=== PATIENT | male | born 1985 | race Caucasian/White ===

== ENCOUNTER 2017-02-11 21:33 | Emergency (ER) | payer OTHER ==
[~2017-02-11] VITALS: Ht 175.3 cm; Wt 84.0 kg
[~2017-02-11 21:33] MED LIST: ADDE30TA PO; CEPH-460 PO; OXYC1CAP PO; XANA2TAB2 PO
[2017-02-11 21:35] VITALS: BP 153/89; PULSE 88; RESP 16; TEMP 98.3; O2SAT 99
[2017-02-11] MEDS ORDERED: CLINDAMYCIN PHOS 600 MG/4 ML VIAL IM ONE (23:15)
[2017-02-11] MEDS ORDERED: IBUPROFEN 800 MG TAB PO ONE (23:15)
[2017-02-11] MEDS ORDERED: CEPH-460 PO (23:25)
[2017-02-11] MEDS ORDERED: BACT800T5 PO (23:25)
[2017-02-11] MEDS ORDERED: IBUP800T23 PO (23:25)
--- NOTE | 2017-02-11 23:25 | PD ---
HPI Chief Complaint: Bite or Sting Time Seen by Provider: 23:06 Travel History International Travel<30 days: No Contact w/Intl Traveler<30days: No Traveled to known affect area: No History of Present Illness HPI 31-year-old male with history of bipolar disorder no significant medical history presents to emergency department for evaluation of light he believes maybe an insect bite to the heel right lower extremity. Patient states that he had an area that developed a pustule and he popped it. He's been keeping it covered but developed another area just distal to that. Reports pain at the site. No fever or chills. No other known exposures. Denies IV drug abuse. Has history of osteo-myelitis the right knee. He has no other symptoms to report. PFSH Past Medical History Hx Anticoagulant Therapy: Yes Arthritis: No Autoimmune Disease: No Bipolar Disorder: Yes Anxiety: Yes Depression: Yes Heart Rhythm Problems: No Cancer: No Cardiovascular Problems: Yes (ht murmur ) High Cholesterol: No Chemotherapy: No Chest Pain: No Congestive Heart Failure: No COPD: No Cerebrovascular Accident: No Diabetes: No Diminished Hearing: No Endocrine: No Gastrointestinal Disorders: No GERD: No Genitourinary: No Headaches: No Hiatal Hernia: No Hypertension: No Immune Disorder: No Implanted Vascular Access Dvce: No Kidney Stones: No Musculoskeletal: Yes (BLOOD CLOT IN RIGHT LEG) Neurologic: Yes (PTSD) Psychiatric: Yes Reproductive: No Respiratory: No Immunizations Current: Yes Radiation Therapy: No Renal Failure: No Seizures: No Sickle Cell Disease: No Sleep Apnea: No Thyroid Disease: No Ulcer: No Past Surgical History Abdominal Surgery: No AICD: No Arteriovenous Shunt: No Cardiac Surgery: No Ear Surgery: No Endocrine Surgery: No Eye Surgery: No Genitourinary Surgery: No Gynecologic Surgery: No Insulin Pump: No Joint Replacement: No Neurologic Surgery: No Oral Surgery: No Pacemaker: No Thoracic Surgery: No Other Surgery: Yes (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 Space doses at least 4 to 6 hours if more than once/day dosing. Review of Systems Except as stated in HPI: all other systems reviewed are Neg Physical Exam Narrative GENERAL: Well-nourished, well-developed patient, in no acute distress SKIN: Focused skin assessment warm/dry. HEAD: Normocephalic. 3 cm diameter scab lesion on the medial aspect of the right distal lower extremity. There is an area of induration just distal this with pustule formation. No fluctuation. EYES: No scleral icterus. No injection or drainage. NECK: Supple, trachea midline. No JVD or lymphadenopathy. CARDIOVASCULAR: Regular rate and rhythm without murmurs, gallops, or rubs. RESPIRATORY: Breath sounds equal bilaterally. No accessory muscle use. GASTROINTESTINAL: Abdomen soft, non-tender, nondistended. MUSCULOSKELETAL: No cyanosis, or edema. BACK: Nontender without obvious deformity. No CVA tenderness. Data Data Last Documented VS Vital Signs Date Time Temp Pulse Resp B/P (MAP) Pulse Ox O2 Delivery O2 Flow Rate FiO2 02/11/17 21:35 98.3 88 16 153/89 (110) 99 Room Air Orders Orders Wound Culture And Gram Stain (02/11/17 23:09) Clindamycin Inj (Cleocin Inj) (02/11/17 23:15) Ibuprofen (Motrin) (02/11/17 23:15) MDM Medical Decision Making Medical Screen Exam Complete: Yes Emergency Medical Condition: Yes Medical Record Reviewed: Yes Differential Diagnosis Abscess versus cellulitis versus folliculitis versus erysipelas Narrative Course 31-year-old male presents to emergency department for evaluation of a possible insect bite to the right distal lower extremity. Physical exam is consistent with an abscess. I&D is complete. Cultures obtained. Patient will be started on oral antibiotics and encouraged to follow-up with primary care provider. He agrees to return immediately with any acute worsening of symptoms. Procedures Procedure Narrative INCISION AND DRAINAGE OF ABSCESS: The area was prepped and was sterilely draped. Topical ethyl chloride was used to anesthetize the area. The area was properly anesthetized. A number 11 scalpel was used to make a 1-cm incision across the area of the abscess. Cultures were obtained. The abscess was drained an irrigated with normal saline. Sterile dressing is applied. Patient tolerated this well. Diagnosis Primary Impression: Abscess of right leg Referrals: Primary Care Physician Patient Instructions: Abscess Incision and Drainage (DC), General Instructions Additional Instructions: Warm compresses to the affected area Follow-up with a primary care provider Start Antibiotic in the morning and take it until it is all gone Return immediately to the emergency department with any acute worsening of symptoms. Med/Other Pt SpecificInfo: Prescription(s) given Scripts Ibuprofen (Ibuprofen) 800 Mg Tab 800 MG PO Q8H Y for Pain/Inflammation, #30 TAB 0 Refills Prov: Cele Butts 02/11/17 Cephalexin (Keflex) 500 Mg Cap 500 MG PO Q6H for Infection for 5 Days, CAP 0 Refills Prov: Cele Butts 02/11/17 Sulfamethoxazole-Trimethoprim (Bactrim DS) 800-160 Mg Tab 1 TAB PO BID for Infection, #20 TAB 0 Refills Prov: Cele Butts 02/11/17 Disposition: 01 DISCHARGE HOME Condition: Stable Cele Butts Feb 11, 2017 23:25
== END 2017-02-12 00:08 | disposition home or self-care (01) ==
LOC: NEPD 21:33
DX: L02.415 Cutaneous abscess of right lower limb (principal); B95.61 Methicillin susceptible Staphylococcus aureus infection as the cause of diseases classified elsewhere; F41.9 Anxiety disorder, unspecified; F17.200 Nicotine dependence, unspecified, uncomplicated; Z86.718 Personal history of other venous thrombosis and embolism; Z79.01 Long term (current) use of anticoagulants; F31.9 Bipolar disorder, unspecified
CPT/HCPCS: 10060; 86403; 87070; 87186; 87205; 96372

== ENCOUNTER 2017-06-23 06:25 | Emergency (ER) | payer OTHER ==
[~2017-06-23] VITALS: Ht 167.6 cm; Wt 75.0 kg
[~2017-06-23 06:25] MED LIST changes: +BACT800T5 PO; +IBUP1TAB7 PO; -OXYC1CAP PO
[2017-06-23 06:27] VITALS: BP 150/85; PULSE 58; RESP 16; TEMP 97.6; O2SAT 99
[2017-06-23 07:05] VITALS: BP 143/82; PULSE 52; RESP 16; TEMP 97.8; O2SAT 96
[2017-06-23 08:30] LABS: AUTOMATED NEUTROPHIL # 2.8 TH/MM3 (1.8-7.7); BASOPHIL % 0.6 % (0.0-2.0); EOSINOPHIL # 0.2 TH/MM3 (0-0.4); EOSINOPHIL % 2.2 % (0.0-4.0); HEMATOCRIT 43.3 % (39.0-51.0); HEMOGLOBIN 15.3 GM/DL (13.0-17.0); LYMPH % 48.6 % (9.0-44.0); LYMPHOCYTE # 3.3 TH/MM3 (1.0-4.8); MEAN CELL VOLUME 84.7 FL (80.0-100.0); MEAN CORPUSCULAR HEMOGLOBIN 29.9 PG (27.0-34.0); MEAN CORPUSCULAR HGB CONC 35.3 % (32.0-36.0); MEAN PLATELET VOLUME 9.5 FL (7.0-11.0); MONO % 8.4 % (0.0-8.0); MONOCYTE # 0.6 TH/MM3 (0-0.9); NEUT % 40.2 % (16.0-70.0); PLATELET COUNT 211 TH/MM3 (150-450); RED BLOOD COUNT 5.12 MIL/MM3 (4.50-5.90); RED CELL DISTRIBUTION WIDTH 13.2 % (11.6-17.2); WHITE BLOOD COUNT 6.9 TH/MM3 (4.0-11.0)
[2017-06-23 09:00] VITALS: BP 138/81; PULSE 50; RESP 16; TEMP 97.9; O2SAT 99
[2017-06-23 09:45] LABS: BLOOD UREA NITROGEN 13 MG/DL (7-18)
[2017-06-23 09:46] LABS: ALBUMIN 3.4 GM/DL (3.4-5.0); ALKALINE PHOSPHATASE 90 U/L (45-117); ALT (GPT) 31 U/L (12-78); AST (GOT) 20 U/L (15-37); C-REACTIVE PROTEIN 0.41 MG/DL (0.00-0.30); CALCIUM 8.8 MG/DL (8.5-10.1); CHLORIDE 105 MEQ/L (98-107); CREATININE 0.91 MG/DL (0.60-1.30); GLOMERULAR FILTRATION RATE 97 ML/MIN (>89); GLUCOSE,RANDOM 86 MG/DL (74-106); SODIUM (NA) 139 MEQ/L (136-145); TOTAL BILIRUBIN ADULT 0.2 MG/DL (0.2-1.0); TOTAL PROTEIN 7.4 GM/DL (6.4-8.2)
--- NOTE | 2017-06-23 09:59 | PD ---
HPI Chief Complaint: Chest Pain Time Seen by Provider: 07:15 Travel History International Travel<30 days: No Contact w/Intl Traveler<30days: No Traveled to known affect area: No History of Present Illness HPI This is a 31-year-old male who has a history of IV drug use who presents to the emergency department reporting that he wants to get checked for endocarditis. The patient reports that his girlfriend is upstairs dying in the ICU and the doctor there told him that he should get evaluated because they share needles. Patient says he had a fever several days ago. He denies any chest pain. He does have a history of osteomyelitis in his knee and he says it hurts from time to time but that is pretty chronic for him. He denies any acute symptoms but he was concerned and wanted to get some blood work done. PFSH Past Medical History Hx Anticoagulant Therapy: Yes Arthritis: No Autoimmune Disease: No Bipolar Disorder: Yes Anxiety: Yes Depression: Yes Heart Rhythm Problems: No Cancer: No Cardiovascular Problems: Yes (ht murmur ) High Cholesterol: No Chemotherapy: No Chest Pain: No Congestive Heart Failure: No COPD: No Cerebrovascular Accident: No Diabetes: No Diminished Hearing: No Endocrine: No Gastrointestinal Disorders: No GERD: No Genitourinary: No Headaches: No Hiatal Hernia: No Heparin Induced Thrombocytopen: No Hypertension: No Immune Disorder: No Implanted Vascular Access Dvce: No Kidney Stones: No Musculoskeletal: Yes (BLOOD CLOT IN RIGHT LEG) Neurologic: Yes (PTSD) Psychiatric: Yes Reproductive: No Respiratory: No Immunizations Current: Yes Radiation Therapy: No Renal Failure: No Seizures: No Sickle Cell Disease: No Sleep Apnea: No Thyroid Disease: No Ulcer: No Tetanus Vaccination: < 5 Years Influenza Vaccination: No Past Surgical History Abdominal Surgery: No AICD: No Arteriovenous Shunt: No Cardiac Surgery: No Ear Surgery: No Endocrine Surgery: No Eye Surgery: No Genitourinary Surgery: No Gynecologic Surgery: No Insulin Pump: No Joint Replacement: No Neurologic Surgery: No Oral Surgery: No Pacemaker: No Thoracic Surgery: No Other Surgery: Yes (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 HEAD: Atraumatic. Normocephalic. EYES: Pupils equal and round. No injection or drainage. ENT: Moist mucous membranes NECK: Trachea midline. CARDIOVASCULAR: Regular rate and rhythm. No murmur appreciated. RESPIRATORY: Clear to auscultation. Breath sounds equal bilaterally. GASTROINTESTINAL: Abdomen soft, non-tender, nondistended. MUSCULOSKELETAL: No obvious deformities. Right knee has some scarring but is not warm or swollen. NEUROLOGICAL: Awake and alert. No obvious cranial nerve deficits. PSYCHIATRIC: Appropriate mood and affect; insight and judgment normal. Data Data Last Documented VS Vital Signs Date Time Temp Pulse Resp B/P (MAP) Pulse Ox O2 Delivery O2 Flow Rate FiO2 06/23/17 09:00 97.9 50 16 138/81 (100) 99 Room Air Orders Orders Electrocardiogram (06/23/17 ) Complete Blood Count With Diff (06/23/17 07:28) Comprehensive Metabolic Panel (06/23/17 07:28) Westergren Sedimentation Rate (06/23/17 07:28) C-Reactive Protein (Crp) (06/23/17 07:28) Labs Laboratory Tests Test 06/23/17 07:25 06/23/17 08:32 White Blood Count 6.9 TH/MM3 Red Blood Count 5.12 MIL/MM3 Hemoglobin 15.3 GM/DL Hematocrit 43.3 % Mean Corpuscular Volume 84.7 FL Mean Corpuscular Hemoglobin 29.9 PG Mean Corpuscular Hemoglobin Concent 35.3 % Red Cell Distribution Width 13.2 % Platelet Count 211 TH/MM3 Mean Platelet Volume 9.5 FL Neutrophils (%) (Auto) 40.2 % Lymphocytes (%) (Auto) 48.6 % Monocytes (%) (Auto) 8.4 % Eosinophils (%) (Auto) 2.2 % Basophils (%) (Auto) 0.6 % Neutrophils # (Auto) 2.8 TH/MM3 Lymphocytes # (Auto) 3.3 TH/MM3 Monocytes # (Auto) 0.6 TH/MM3 Eosinophils # (Auto) 0.2 TH/MM3 Basophils # (Auto) 0.0 TH/MM3 CBC Comment AUTO DIFF Differential Comment FINAL DIFF MANUAL Platelet Estimate NORMAL Platelet Morphology Comment CLUMPED Erythrocyte Sedimentation Rate 8 mm/hr Blood Urea Nitrogen 13 MG/DL Creatinine 0.91 MG/DL Random Glucose 86 MG/DL Total Protein 7.4 GM/DL Albumin 3.4 GM/DL Calcium Level 8.8 MG/DL Alkaline Phosphatase 90 U/L Aspartate Amino Transf (AST/SGOT) 20 U/L Alanine Aminotransferase (ALT/SGPT) 31 U/L Total Bilirubin 0.2 MG/DL Sodium Level 139 MEQ/L Potassium Level 3.9 MEQ/L Chloride Level 105 MEQ/L Carbon Dioxide Level 30.0 MEQ/L Anion Gap 4 MEQ/L Estimat Glomerular Filtration Rate 97 ML/MIN C-Reactive Protein 0.41 MG/DL [facility] Medical Decision Making Medical Screen Exam Complete: Yes Emergency Medical Condition: Yes Interpretation(s) Afebrile, no tachycardia, normotensive No leukocytosis Sed rate is normal CRP is 0.4 Electrolytes are reassuring Differential Diagnosis Endocarditis, osteomyelitis, septic arthritis Narrative Course This is a 31-year-old male who has a history of IV drug use who presents to the emergency department to be evaluated because his girlfriend is dying of endocarditis. He has no acute at risk for endocarditis but has no symptoms at this time. He was placed on a monitor and an IV was established. Labs were obtained which were reassuring including normal inflammatory markers. I think the patient can be discharged and he should return if he develops fevers or chest pain. Diagnosis Primary Impression: H/O intravenous drug use in remission Patient Instructions: General Instructions Additional Instructions: If you develop severe chest pain, shortness of breath, sweating, lightheadedness , dizziness or difficulty breathing return to the emergency department immediately. Followup with your primary care physician in 2-3 days if your symptoms are not resolved. Med/Other Pt SpecificInfo: No Change to Meds Disposition: 01 DISCHARGE HOME Condition: Stable Nichole Barker MD Jun 23, 2017 09:59
[2017-06-23 10:07] VITALS: BP 136/80; TEMP 97.8
--- NOTE | 2017-06-23 19:30 | EKG ---
Date Performed: 06/23/2017 Time Performed: 07:07:20 PTAGE: 31 years EKG: SINUS BRADYCARDIA EARLY REPOLARIZATION BORDERLINE ECG NO PREVIOUS TRACING DOCTOR: Mai Dumont Interpretating Date/Time 06/23/2017 19:25:41
== END 2017-06-23 10:07 | disposition home or self-care (01) ==
LOC: NEPE 06:25
DX: F19.90 Other psychoactive substance use, unspecified, uncomplicated (principal); F17.200 Nicotine dependence, unspecified, uncomplicated; R50.9 Fever, unspecified
CPT/HCPCS: 80053; 85007; 85027; 85652; 86140; 93005

== ENCOUNTER 2017-08-06 18:55 | Observation (INO) | payer OTHER ==
[~2017-08-06] VITALS: Ht 172.7 cm; Wt 80.0 kg
[~2017-08-06 18:55] MED LIST changes: -ADDE30TA PO; -BACT800T5 PO; -CEPH-460 PO; -IBUP1TAB7 PO
[2017-08-06 19:09] VITALS: BP 127/67; PULSE 53; RESP 18; TEMP 97.4; O2SAT 97
--- NOTE | 2017-08-06 20:42 | RADRPT ---
EXAM DATE/TIME: 08/06/2017 20:05 [facility] COMPARISON: US LEG RIGHT VENOUS DOPPLER, August 29, 2015, 15:46. INDICATIONS : Right leg edema. MEDICAL HISTORY : Deep venous thrombosis. Heart murmur. Necrotizing left arm. Anxiety. Hepatitis. Right ankle inju ry. Tibial osteomyelitis. SURGICAL HISTORY : Orthopedic surgery, tibia and fibula fracture repair. Surgery on left arm. ENCOUNTER: Subsequent ACUITY: 1 day PAIN SCORE: 9/10 LOCATION: Right leg. TECHNIQUE: Venous ultrasound of the leg was performed from the inguinal ligament to the proximal calf. Real-jaxon e, color Doppler and spectral tracing, compression and augmentation techniques were used. FINDINGS: There is normal compressibility of the deep venous system from the inguinal region to the proximal ca lf. No echogenic clot is seen in the lumen of the common femoral, femoral, popliteal, and posterior tibial veins. There is a normal response of the venous system to proximal and distal augmentation an d respiration. CONCLUSION: 1. Negative for deep venous thrombosis. Inocente Keane MD on August 06, 2017 at 20:40 Board Certified Radiologist. This report was verified electronically.
[2017-08-06 22:06] VITALS: BP 114/70; PULSE 59; RESP 14; O2SAT 98
--- NOTE | 2017-08-06 22:22 | PD ---
HPI Chief Complaint: Edema Time Seen by Provider: 22:01 Travel History International Travel<30 days: No Contact w/Intl Traveler<30days: No Traveled to known affect area: No History of Present Illness HPI Patient is a 31-year-old male who says he had a history of osteomyelitis of his right tib-fib after he had an abscess. It was over a year and a half ago he said he had 5 surgeries to debrided patient also has a history of having a fasciotomy on his left forearm. His complaint is worsening pain swelling of the right lower extremity patient is speaking slightly slurred he is slightly somnolent possibly under the influence of opiates or sedatives or alcohol PFSH Past Medical History Hx Anticoagulant Therapy: Yes Arthritis: No Autoimmune Disease: No Bipolar Disorder: Yes Anxiety: Yes Depression: Yes Heart Rhythm Problems: No Cancer: No Cardiovascular Problems: Yes (ht murmur ) High Cholesterol: No Chemotherapy: No Chest Pain: No Congestive Heart Failure: No COPD: No Cerebrovascular Accident: No Diabetes: No Diminished Hearing: No Endocrine: No Gastrointestinal Disorders: No GERD: No Genitourinary: No Headaches: No Hiatal Hernia: No Heparin Induced Thrombocytopen: No Hypertension: No Immune Disorder: No Implanted Vascular Access Dvce: No Kidney Stones: No Musculoskeletal: Yes (BLOOD CLOT IN RIGHT LEG) Neurologic: Yes (PTSD) Psychiatric: Yes Reproductive: No Respiratory: No Immunizations Current: Yes Radiation Therapy: No Renal Failure: No Seizures: No Sickle Cell Disease: No Sleep Apnea: No Thyroid Disease: No Ulcer: No Past Surgical History Abdominal Surgery: No AICD: No Arteriovenous Shunt: No Cardiac Surgery: No Ear Surgery: No Endocrine Surgery: No Eye Surgery: No Genitourinary Surgery: No Gynecologic Surgery: No Insulin Pump: No Joint Replacement: No Neurologic Surgery: No Oral Surgery: No Pacemaker: No Thoracic Surgery: No Other Surgery: Yes (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 Space doses at least 4 to 6 hours if more than once/day dosing. Abilify (Aripiprazole) 15 Mg Tab 15 Mg PO DAILY Xanax (Alprazolam) 2 Mg Tab 2 Mg PO Q4HR PRN Review of Systems Except as stated in HPI: all other systems reviewed are Neg Musculoskeletal: Positive: Myalgias, Arthralgias, Edema, Pain (pain and swelling to the lateral aspect of the right fibula area proximal) Physical Exam Narrative GENERAL: Patient is somewhat somnolent speaking very slowly mildly slurred SKIN: Warm and dry. HEAD: Atraumatic. Normocephalic. EYES: Pupils equal and round. No scleral icterus. No injection or drainage. ENT: No nasal bleeding or discharge. Mucous membranes pink and moist. NECK: Trachea midline. No JVD. CARDIOVASCULAR: Regular rate and rhythm. RESPIRATORY: No accessory muscle use. Clear to auscultation. Breath sounds equal bilaterally. GASTROINTESTINAL: Abdomen soft, non-tender, nondistended. Hepatic and splenic margins not palpable. MUSCULOSKELETAL: Extremities right lower extremity has a deficit with a scar on the lateral aspect of the fibula head he is complaining of pain down that entire leg to the foot it is mildly more swollen and full than the left . No pitting edema NEUROLOGICAL: Awake and alert. No obvious cranial nerve deficits. Motor grossly within normal limits. Five out of 5 muscle strength in the arms and legs. Normal speech. PSYCHIATRIC: Appropriate mood and affect; insight and judgment normal. Data Data Last Documented VS Orders Orders Us Leg Venous Doppler (08/06/17 ) Complete Blood Count With Diff (08/06/17 19:16) Comprehensive Metabolic Panel (08/06/17 19:16) Act Partial Throm Time (Ptt) (08/06/17 19:16) Prothrombin Time / Inr (Pt) (08/06/17 19:16) Lactic Acid (08/06/17 22:16) Blood Culture (08/06/17 22:16) Ct Tib/Fib W/O Iv Contrast (08/06/17 ) Cefepime Inj (Maxipime Inj) (08/07/17 00:00) Vancomycin Inj (Vancomycin Inj) (08/07/17 00:00) Admit Order (Ed Use Only) (08/07/17 00:08) Mri Lower Leg W/Wo Contrast (08/07/17 ) Labs Laboratory Tests Test 08/06/17 22:06 08/06/17 22:15 White Blood Count 6.6 TH/MM3 Red Blood Count 5.06 MIL/MM3 Hemoglobin 15.0 GM/DL Hematocrit 42.2 % Mean Corpuscular Volume 83.2 FL Mean Corpuscular Hemoglobin 29.7 PG Mean Corpuscular Hemoglobin Concent 35.6 % Red Cell Distribution Width 13.4 % Platelet Count 162 TH/MM3 Mean Platelet Volume 8.8 FL Neutrophils (%) (Auto) 55.3 % Lymphocytes (%) (Auto) 34.3 % Monocytes (%) (Auto) 7.2 % Eosinophils (%) (Auto) 2.8 % Basophils (%) (Auto) 0.4 % Neutrophils # (Auto) 3.7 TH/MM3 Lymphocytes # (Auto) 2.3 TH/MM3 Monocytes # (Auto) 0.5 TH/MM3 Eosinophils # (Auto) 0.2 TH/MM3 Basophils # (Auto) 0.0 TH/MM3 CBC Comment DIFF FINAL Differential Comment Erythrocyte Sedimentation Rate 3 mm/hr Prothrombin Time 9.7 SEC Prothromb Time International Ratio 1.0 RATIO Activated Partial Thromboplast Time 25.2 SEC Lactic Acid Level 0.7 mmol/L MDM Medical Decision Making Medical Screen Exam Complete: Yes Emergency Medical Condition: Yes Differential Diagnosis cellulitis vs osteomyelitis vs wound infection vs abscess subQ other post op pain Narrative Course CT indeterminant for old bone scarring vs active osteomyelitis Levaquin given to cover psuedommonas and other pathogens admit for IV antibiotic and MRi Diagnosis Primary Impression: Foot infection Additional Impression: Left foot infection Scripts Ibuprofen (Ibuprofen) 600 Mg Tab 600 MG PO Q8H Y for PAIN for 7 Days, #21 TAB 0 Refills Always take with food. Prov: Martina Mosqueda PA-C 08/08/17 Doxycycline Hyclate (Doxycycline Hyclate) 100 Mg Cap 100 MG PO BID for Infection, #20 CAP 0 Refills Prov: Martina Mosqueda PA-C 08/08/17 Dc Joya MD Aug 06, 2017 22:21
[2017-08-06 22:53] LABS: AUTOMATED NEUTROPHIL # 3.7 TH/MM3 (1.8-7.7); BASOPHIL % 0.4 % (0.0-2.0); EOSINOPHIL # 0.2 TH/MM3 (0-0.4); EOSINOPHIL % 2.8 % (0.0-4.0); HEMATOCRIT 42.2 % (39.0-51.0); LYMPH % 34.3 % (9.0-44.0); LYMPHOCYTE # 2.3 TH/MM3 (1.0-4.8); MEAN CELL VOLUME 83.2 FL (80.0-100.0); MEAN CORPUSCULAR HEMOGLOBIN 29.7 PG (27.0-34.0); MEAN CORPUSCULAR HGB CONC 35.6 % (32.0-36.0); MEAN PLATELET VOLUME 8.8 FL (7.0-11.0); MONO % 7.2 % (0.0-8.0); MONOCYTE # 0.5 TH/MM3 (0-0.9); NEUT % 55.3 % (16.0-70.0); PLATELET COUNT 162 TH/MM3 (150-450); RED BLOOD COUNT 5.06 MIL/MM3 (4.50-5.90); RED CELL DISTRIBUTION WIDTH 13.4 % (11.6-17.2); WHITE BLOOD COUNT 6.6 TH/MM3 (4.0-11.0)
--- NOTE | 2017-08-06 23:28 | RADRPT ---
EXAM DATE/TIME: 08/06/2017 22:55 [facility] COMPARISON: CT KNEE RIGHT W CONTRAST, April 11, 2015, 11:09. MRI KNEE RIGHT W & W/O CONTRAST, April 08 15, 13:43. TIBIA/FIBULA RIGHT (AP/LAT), June 15, 2015, 18:39. KNEE RIGHT COMPLETE (4VWS), 2015, 19:56. INDICATIONS : Right lower leg pain. RADIATION DOSE: 23.42 CTDIvol (mGy) MEDICAL HISTORY : Cardiovascular disease. Right leg osteomylitis. Left arm necrotizing fasciitis. SURGICAL HISTORY : Right lower leg. ENCOUNTER: Initial ACUITY: 1 day PAIN SCALE: 8/10 LOCATION: Right lower leg TECHNIQUE: Volumetric scanning of the tibia and fibula was performed. Using automated exposure control and adju stment of the mA and/or kV according to patient size, radiation dose was kept as low as reasonably ac hievable to obtain optimal diagnostic quality images. DICOM format image data is available [email or web address] for review and comparison. FINDINGS: The proximal aspect of the tibia demonstrates abnormal mottled heterogeneous bone density similar to the prior CT. This abnormality involves the proximal metaphysis and epiphysis, proximally the 8.5 cm proximal aspect of the tibia. No osseous destruction or periosteal reaction is identified. The fibula , distal femur, and patella demonstrate normal bone density. There is a small to moderate size joint effusion. Diffuse subcutaneous edema is present throughout the right leg. There is skin thickening an d subcutaneous stranding along the anterior lateral aspect of the knee an area of suspected open woun d. No radiopaque foreign body is seen. There is no acute fracture. CONCLUSION: 1. Persistent abnormal density in the proximal metaphysis and epiphysis of the tibia similar to the p rior study. This could represent residual changes related to prior osteomyelitis versus acute osteomy elitis. A white blood cell study could help differentiate the 2 potential etiologies. Potentially, MR I might help differentiate acute versus chronic change. 2. There is diffuse subcutaneous edema of the right leg with skin changes along the anterolateral asp ect proximally which may represent a wound. 3. Small to moderate-sized joint effusion. Cristiano Bustamante MD on August 06, 2017 at 23:20 Board Certified Radiologist. This report was verified electronically.
[2017-08-06 23:31] LABS: PROTHROMBIN TIME - PATIENT 9.7 SEC (9.8-11.6)
[2017-08-07] VITALS (7 sets, daily range): BP systolic 117–139; BP diastolic 70–96; PULSE 50–64; RESP 14–18; TEMP 97.3–98.4; O2SAT 95–100
[2017-08-07] MEDS ORDERED: VANCOMYCIN INJ 1,000 MG in SODIUM CHLOR 0.9% 250 ML INJ 250 ML IV ONE ×2
[2017-08-07] MEDS ORDERED: CEFEPIME INJ 2,000 MG in SODIUM CHLORIDE 0.9% INJ 100 ML IV ONE ×2
[2017-08-07] MEDS ORDERED: ABIL15TA3 PO (00:48)
[2017-08-07] MEDS ORDERED: ADDE30TA PO (00:48)
[2017-08-07 01:15] LABS: ALBUMIN 3.2 GM/DL (3.4-5.0); ALT (GPT) 86 U/L (12-78); AST (GOT) 147 U/L (15-37); BICARBONATE 30.7 MEQ/L (21.0-32.0); BLOOD UREA NITROGEN 12 MG/DL (7-18); CALCIUM 8.5 MG/DL (8.5-10.1); CHLORIDE 105 MEQ/L (98-107); CREATININE 0.85 MG/DL (0.60-1.30); GLOMERULAR FILTRATION RATE 105 ML/MIN (>89); GLUCOSE,RANDOM 99 MG/DL (74-106); SODIUM (NA) 142 MEQ/L (136-145)
[2017-08-07 01:18] LABS: ALKALINE PHOSPHATASE 93 U/L (45-117); TOTAL BILIRUBIN ADULT 0.3 MG/DL (0.2-1.0)
[2017-08-07] MEDS ORDERED: ZOLPIDEM TARTRATE 10 MG TAB PO PRN (01:30)
[2017-08-07] MEDS ORDERED: NALOXONE HCL 0.4 MG/ML AMP IV PUSH PRN (01:30)
[2017-08-07] MEDS ORDERED: MAGNESIUM HYDROXIDE SUSP 30 ML CUP PO PRN (01:30)
[2017-08-07] MEDS ORDERED: SENNOSIDES 8.6 MG TAB PO PRN (01:30)
[2017-08-07] MEDS ORDERED: ACETAMINOPHEN 325 MG TAB PO PRN (01:30)
[2017-08-07] MEDS ORDERED: Vancomycin Consult Pharmacy 1 EA OTHER SCH (01:30)
[2017-08-07] MEDS ORDERED: SODIUM CHLORIDE 0.9% FLUSH 10 ML FLUSH IV FLUSH PRN (01:30)
[2017-08-07] MEDS ORDERED: LACTULOSE SYRUP 20 GM/30 ML CUP PO PRN (01:30)
[2017-08-07] MEDS ORDERED: BISACODYL 10 MG SUPP RECTAL PRN (01:30)
[2017-08-07] MEDS ORDERED: POTASSIUM CHLORIDE 20 MEQ CONTROLLED RELEASE TAB PO ONE (02:00)
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
[2017-08-07] MEDS ORDERED: VANCOMYCIN 1 GM/200 ML PREMIX IV ONE (02:30)
[2017-08-07] MEDS: MORPHINE SULFATE 4 MG/ML INJ IV PUSH PRN ×3 (02:50→13:06)
[2017-08-07] MEDS: ONDANSETRON HCL 4 MG/2 ML VIAL IVP PRN ×2 (03:00→09:18)
[2017-08-07] MEDS: ARIPiprazole 15 MG TAB PO SCH (09:00)
[2017-08-07] MEDS: DOCUSATE SODIUM 50 MG/SENNA 8.6 MG TAB PO SCH ×2 (09:00→21:00)
[2017-08-07] MEDS: CEFEPIME INJ 2,000 MG in SODIUM CHLORIDE 0.9% INJ 100 ML IV SCH (12:00)
[2017-08-07] MEDS ORDERED: VANCOMYCIN INJ 1,000 MG in SODIUM CHLOR 0.9% 250 ML INJ 250 ML IV SCH (12:00)
[2017-08-07] MEDS ORDERED: CALCIUM CARBONATE 500 MG CHEWABLE TAB CHEW PRN (12:15)
[2017-08-07] MEDS: REMOVE OLD PATCH T-DERMAL SCH (13:06)
[2017-08-07] MEDS: NICOTINE 21 MG/24 HR PATCH T-DERMAL SCH (13:06)
[2017-08-07] MEDS: SODIUM CHLORIDE 0.9% FLUSH 10 ML FLUSH IV FLUSH SCH ×2 (13:07→21:20)
[2017-08-07] MEDS ORDERED: POTASSIUM CHLORIDE 10 MEQ CONTROLLED RELEASE TAB PO ONE (15:15)
--- NOTE | 2017-08-07 15:17 | HHI.PR ---
Addendum to Inpatient Note Addendum Reason: Additional Documentation Additional Information Patient seen and examined Currently on IV antibiotic and monitor response Give KCL 60Meq x 1 Ulices Chen MD Aug 07, 2017 15:17
[2017-08-07] MEDS: VANCOMYCIN 1,500 MG/NS 500 ML IV SCH ×2 (16:37)
--- NOTE | 2017-08-07 16:58 | RADRPT ---
EXAM DATE/TIME: 08/07/2017 15:48 [facility] COMPARISON: MRI KNEE RIGHT W & W/O CONTRAST, March 19, 2015, 10:23. CT TIBIA/FIBULA, W/O CONTRAST, RIGHT, Anand singh 2017, 22:55. INDICATIONS : Pain with bruising on distal posterior right leg. Patient states no known injury. CONTRAST: 16 cc Omniscan (gadodiamide) IV MEDICAL HISTORY : Osteomyelitis. SURGICAL HISTORY : Lt ankle, Rt knee, Lt arm infections ENCOUNTER: Subsequent ACUITY: 4-6 days PAIN SCORE: 7/10 LOCATION: Right leg TECHNIQUE: Multiplanar multisequence MRI examination of the lower leg was performed with and without contrast. FINDINGS: Examination there is abnormal signal changes within the proximal tibia. On a prior examination from 015 patient appeared to have osteomyelitis involving the proximal tibia with edema in the bony marrow . On today's examination the changes within the bony marrow appear to be more chronic in appearance w ithout definite acute edema seen within the bone marrow at this time. The cortex of the proximal tibi a remains intact. There is normal signal throughout the bone marrow involving the mid to distal tibia . There is some Nonspecific subcutaneous edema along the posterior aspect of the calf. No loculated f luid collections are seen in the soft tissues. There is normal signal intensity within the muscle str uctures. CONCLUSION: 1. Patient had a previous history of osteomyelitis in the proximal tibia back in 2014. There is abnor mal signal changes within the marrow of the proximal tibia which appear to be most likely chronic fro m patient's prior history of osteomyelitis. However, this needs to be correlated with patient's physi peter, clinical exam and laboratory values. 2. Nonspecific edema in the subcutaneous soft tissues along the posterior aspect of the calf. Volodymyr Sharma MD on August 07, 2017 at 16:50 Board Certified Radiologist. This report was verified electronically.
[2017-08-07] MEDS ORDERED: GADODIAMIDE PF 287 MG/ML 20 ML VIAL (for RAD MRI) IVCONTRAST ONE (17:37)
[2017-08-07] MEDS: ALPRAZolam 1 MG TAB PO PRN (21:20)
[2017-08-08 01:14] VITALS: BP 117/72; PULSE 58; RESP 18; TEMP 98.2; O2SAT 95
[2017-08-08] MEDS: CEFEPIME INJ 2,000 MG in SODIUM CHLORIDE 0.9% INJ 100 ML IV SCH ×2 (02:02→12:00)
[2017-08-08 03:49] VITALS: BP 108/71; PULSE 64; RESP 18; TEMP 98; O2SAT 97
[2017-08-08] MEDS: VANCOMYCIN 1,500 MG/NS 500 ML IV SCH ×4 (05:26→16:01)
[2017-08-08 07:50] VITALS: BP 120/89; PULSE 74; RESP 18; TEMP 98; O2SAT 96
[2017-08-08 08:21] LABS: BASOPHIL % 0.4 % (0.0-2.0); EOSINOPHIL # 0.2 TH/MM3 (0-0.4); EOSINOPHIL % 2.9 % (0.0-4.0); HEMATOCRIT 44.3 % (39.0-51.0); HEMOGLOBIN 15.4 GM/DL (13.0-17.0); LYMPH % 33.2 % (9.0-44.0); LYMPHOCYTE # 2.3 TH/MM3 (1.0-4.8); MEAN CELL VOLUME 85.1 FL (80.0-100.0); MEAN CORPUSCULAR HEMOGLOBIN 29.5 PG (27.0-34.0); MEAN CORPUSCULAR HGB CONC 34.7 % (32.0-36.0); MEAN PLATELET VOLUME 9.3 FL (7.0-11.0); MONO % 5.4 % (0.0-8.0); MONOCYTE # 0.4 TH/MM3 (0-0.9); NEUT % 58.1 % (16.0-70.0); PLATELET COUNT 154 TH/MM3 (150-450); RED CELL DISTRIBUTION WIDTH 13.2 % (11.6-17.2); WHITE BLOOD COUNT 6.8 TH/MM3 (4.0-11.0)
[2017-08-08 08:36] LABS: ALBUMIN 3.5 GM/DL (3.4-5.0); AST (GOT) 90 U/L (15-37); BICARBONATE 26.6 MEQ/L (21.0-32.0); BLOOD UREA NITROGEN 9 MG/DL (7-18); CHLORIDE 104 MEQ/L (98-107); CREATININE 0.82 MG/DL (0.60-1.30); GLOMERULAR FILTRATION RATE 110 ML/MIN (>89); GLUCOSE,RANDOM 87 MG/DL (74-106); SODIUM (NA) 138 MEQ/L (136-145)
[2017-08-08 08:38] LABS: ALT (GPT) 81 U/L (12-78)
[2017-08-08 08:41] LABS: ALKALINE PHOSPHATASE 95 U/L (45-117); TOTAL BILIRUBIN ADULT 0.3 MG/DL (0.2-1.0); TOTAL PROTEIN 7.6 GM/DL (6.4-8.2)
[2017-08-08] MEDS: DOCUSATE SODIUM 50 MG/SENNA 8.6 MG TAB PO SCH ×2 (09:00→20:06)
[2017-08-08] MEDS: REMOVE OLD PATCH T-DERMAL SCH (09:00)
[2017-08-08] MEDS: SODIUM CHLORIDE 0.9% FLUSH 10 ML FLUSH IV FLUSH SCH ×2 (09:21→20:11)
[2017-08-08] MEDS: ARIPiprazole 15 MG TAB PO SCH (09:21)
[2017-08-08] MEDS: NICOTINE 21 MG/24 HR PATCH T-DERMAL SCH (09:23)
[2017-08-08] MEDS: MORPHINE SULFATE 4 MG/ML INJ IV PUSH PRN ×2 (09:24→14:10)
[2017-08-08 11:13] VITALS: BP 113/74; PULSE 71; RESP 18; TEMP 98.2; O2SAT 95
[2017-08-08] MEDS: ALPRAZolam 1 MG TAB PO PRN ×2 (12:26→20:07)
--- NOTE | 2017-08-08 13:43 | HHI.PR ---
Subjective Remarks Follow-up right lower extremity pain. States pain is improving mainly involving the right knee. Denies recent trauma. Discussed with nursing and physical therapy Objective Vitals Vital Signs Date Time Temp Pulse Resp B/P (MAP) Pulse Ox O2 Delivery O2 Flow Rate FiO2 08/08/17 11:13 98.2 71 18 113/74 (87) 95 08/08/17 07:50 98.0 74 18 120/89 (99) 96 08/08/17 03:49 98.0 64 18 108/71 (83) 97 08/08/17 01:14 98.2 58 18 117/72 (87) 95 08/07/17 20:31 98.4 62 18 139/96 (110) 100 08/07/17 16:49 97.3 62 18 117/71 (86) 95 I/O 08/07/17 08/07/17 08/07/17 08/08/17 08/08/17 08/08/17 07:00 15:00 23:00 07:00 15:00 23:00 Intake Total 550 ml Output Total 600 ml 500 ml Balance 550 ml -600 ml -500 ml Intake IV Total 550 ml Output Urine Total 600 ml 500 ml # Voids 4 Result Diagram: 08/08/17 0610 08/08/17 0610 Imaging Last Impressions Lower Extremity MRI 08/07/17 0000 Signed Impressions: Service Date/Time: July 15:48 - CONCLUSION: 1. Patient had a previous history of osteomyelitis in the proximal tibia back in 2014. There is abnormal signal changes within the marrow of the proximal tibia which appear to be most likely chronic from patient's prior history of osteomyelitis. However, this needs to be correlated with patient's physical, clinical exam and laboratory values. 2. Nonspecific edema in the subcutaneous soft tissues along the posterior aspect of the calf. Volodymyr Sharma MD Lower Extremity Ultrasound 08/06/17 0000 Signed Impressions: Service Date/Time: Sunday, August 06, 2017 20:05 - CONCLUSION: 1. Negative for deep venous thrombosis. Inocente Keane MD Lower Extremity CT 08/06/17 0000 Signed Impressions: Service Date/Time: Sunday, August 06, 2017 22:55 - CONCLUSION: 1. Persistent abnormal density in the proximal metaphysis and epiphysis of the tibia similar to the prior study. This could represent residual changes related to prior osteomyelitis versus acute osteomyelitis. A white blood cell study could help differentiate the 2 potential etiologies. Potentially, MRI might help differentiate acute versus chronic change. 2. There is diffuse subcutaneous edema of the right leg with skin changes along the anterolateral aspect proximally which may represent a wound. 3. Small to moderate-sized joint effusion. Cristiano Bustamante MD Objective Remarks GENERAL: male sitting up in bed SKIN: No rashes, ecchymoses or lesions. Cool and dry. CARDIOVASCULAR: Regular rate and rhythm without murmurs, gallops, or rubs. RESPIRATORY: Clear to auscultation. Breath sounds equal bilaterally. No wheezes , rales, or rhonchi. GASTROINTESTINAL: Abdomen soft, non-tender, nondistended. No guarding. MUSCULOSKELETAL: Bilateral lower extremities without edema or erythema. Mild increased swelling in the right lower extremity. Right knee slightly swollen but no redness, erythema with full range of motion NEUROLOGICAL: Awake and alert. Cranial nerves II through XII intact. Motor and sensory grossly within normal limits. Normal speech. Procedures None A/P Problem List: (1) Knee pain, right ICD Code: M25.561 - Pain in right knee Status: Chronic Assessment and Plan 1. Right lower extremity pain/concern for recurrent osteomyelitis. Today complains more of right knee pain with slight swelling imaging study shows moderate effusion CT of the right lower extremity showed persistent abnormal density of the tibia similar to previous study; residual changes from prior osteomyelitis versus acute osteomyelitis ESR within normal limits MRI results noted Vancomycin/cefepime for possible osteomyelitis White blood cell scan may be necessary Blood cultures negative to date Consult infectious disease Pain management with NSAIDs and IV morphine for breakthrough pain 2. Bipolar disorder/anxiety/ADHD Continue home Abilify Patient reports 2 mg of Xanax every 4 hours when necessary, will order 1 mg every 6 hours Restart Adderall 3. Hypokalemia Status post repletion Follow-up BMP 4. Transaminitis with history of hepatitis C. Will monitor FEN Regular diet Electrolytes: As above PT recommends rolling walker Discharge Planning Discharge when cleared by Israel Anderson MD Aug 08, 2017 13:43
[2017-08-08] MEDS ORDERED: PHARMACY ORDERED LAB ONE (14:45)
[2017-08-08] MEDS ORDERED: IBUPROFEN 400 MG TAB PO PRN (15:00)
[2017-08-08] MEDS ORDERED: KETOROLAC TROMETHAMINE 30 MG/ML (IVP) VIAL IV PUSH PRN (15:00)
[2017-08-08 16:09] VITALS: BP 100/54; PULSE 65; RESP 18; TEMP 98.2; O2SAT 93
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
[2017-08-08] MEDS ORDERED: DOXY100C PO (17:50)
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
[2017-08-08] MEDS ORDERED: IBUP-232 PO (17:54)
[2017-08-08] MEDS ORDERED: CALCIUM CARBONATE 500 MG CHEWABLE TAB CHEW PRN (18:00)
[2017-08-08] MEDS: FAMOTIDINE 20 MG TAB PO SCH ×2 (18:41→21:00)
[2017-08-08] MEDS: KETOROLAC TROMETHAMINE 30 MG/ML (IVP) VIAL IV PUSH PRN (18:41)
[2017-08-08 19:55] VITALS: BP 121/69; PULSE 72; RESP 19; TEMP 98.1; O2SAT 95
[2017-08-08] MEDS: DOXYCYCLINE HYCLATE 100 MG CAP PO SCH (20:07)
[2017-08-08] MEDS: MORPHINE SULFATE 2 MG/ML INJ IV PUSH PRN (23:21)
[2017-08-09 00:26] VITALS: BP 113/76; PULSE 56; RESP 18; TEMP 98.1; O2SAT 94
[2017-08-09] MEDS: KETOROLAC TROMETHAMINE 30 MG/ML (IVP) VIAL IV PUSH PRN (02:19)
[2017-08-09] MEDS ORDERED: VANCOMYCIN INJ 1,700 MG in SODIUM CHLORID 0.9% 500 ML INJ 500 ML IV SCH (03:00)
[2017-08-09 03:26] VITALS: BP 122/77; PULSE 51; RESP 18; TEMP 97.9; O2SAT 95
[2017-08-09 06:24] LABS: ALBUMIN 3.1 GM/DL (3.4-5.0); ALT (GPT) 75 U/L (12-78); AST (GOT) 67 U/L (15-37); BICARBONATE 25.8 MEQ/L (21.0-32.0); BLOOD UREA NITROGEN 9 MG/DL (7-18); CALCIUM 8.6 MG/DL (8.5-10.1); CHLORIDE 108 MEQ/L (98-107); CREATININE 0.89 MG/DL (0.60-1.30); GLOMERULAR FILTRATION RATE 100 ML/MIN (>89); GLUCOSE,RANDOM 94 MG/DL (74-106); MAGNESIUM 1.9 MG/DL (1.5-2.5); SODIUM (NA) 141 MEQ/L (136-145)
[2017-08-09 06:26] LABS: ALKALINE PHOSPHATASE 97 U/L (45-117); TOTAL BILIRUBIN ADULT 0.2 MG/DL (0.2-1.0); TOTAL PROTEIN 7.1 GM/DL (6.4-8.2)
[2017-08-09] MEDS: MORPHINE SULFATE 2 MG/ML INJ IV PUSH PRN (06:26)
--- NOTE | 2017-08-09 07:02 | HHI.PR ---
Subjective Remarks Follow-up lower extremity cellulitis. Improving pain discussed with nursing Objective Vitals Vital Signs Date Time Temp Pulse Resp B/P (MAP) Pulse Ox O2 Delivery O2 Flow Rate FiO2 08/09/17 03:26 97.9 51 18 122/77 (92) 95 08/09/17 00:26 98.1 56 18 113/76 (88) 94 08/08/17 19:55 98.1 72 19 121/69 (86) 95 08/08/17 16:09 98.2 65 18 100/54 (69) 93 08/08/17 11:13 98.2 71 18 113/74 (87) 95 08/08/17 07:50 98.0 74 18 120/89 (99) 96 I/O 08/08/17 08/08/17 08/08/17 08/09/17 08/09/17 08/09/17 07:00 15:00 23:00 07:00 15:00 23:00 # Voids 3 Result Diagram: 08/08/17 0610 08/09/17 0506 Imaging Last Impressions Lower Extremity MRI 08/07/17 0000 Signed Impressions: Service Date/Time: July 15:48 - CONCLUSION: 1. Patient had a previous history of osteomyelitis in the proximal tibia back in 2014. There is abnormal signal changes within the marrow of the proximal tibia which appear to be most likely chronic from patient's prior history of osteomyelitis. However, this needs to be correlated with patient's physical, clinical exam and laboratory values. 2. Nonspecific edema in the subcutaneous soft tissues along the posterior aspect of the calf. Volodymyr Sharma MD Lower Extremity Ultrasound 08/06/17 0000 Signed Impressions: Service Date/Time: Sunday, August 06, 2017 20:05 - CONCLUSION: 1. Negative for deep venous thrombosis. Inocente Keane MD Lower Extremity CT 08/06/17 0000 Signed Impressions: Service Date/Time: Sunday, August 06, 2017 22:55 - CONCLUSION: 1. Persistent abnormal density in the proximal metaphysis and epiphysis of the tibia similar to the prior study. This could represent residual changes related to prior osteomyelitis versus acute osteomyelitis. A white blood cell study could help differentiate the 2 potential etiologies. Potentially, MRI might help differentiate acute versus chronic change. 2. There is diffuse subcutaneous edema of the right leg with skin changes along the anterolateral aspect proximally which may represent a wound. 3. Small to moderate-sized joint effusion. Cristiano Bustamante MD Objective Remarks GENERAL: male sitting up in bed SKIN: No rashes, ecchymoses or lesions. Cool and dry. CARDIOVASCULAR: Regular rate and rhythm without murmurs, gallops, or rubs. RESPIRATORY: Clear to auscultation. Breath sounds equal bilaterally. No wheezes , rales, or rhonchi. GASTROINTESTINAL: Abdomen soft, non-tender, nondistended. No guarding. MUSCULOSKELETAL: Bilateral lower extremities without edema or erythema. Mild increased swelling in the right lower extremity. Right knee slightly swollen but no redness, erythema with full range of motion NEUROLOGICAL: Awake and alert. Cranial nerves II through XII intact. Motor and sensory grossly within normal limits. Normal speech. Procedures None A/P Problem List: (1) Knee pain, right ICD Code: M25.561 - Pain in right knee Status: Chronic Assessment and Plan 1. Right lower extremity pain/concern for recurrent osteomyelitis. Discussed with infectious disease, patient likely has cellulitis doubt osteomyelitis. Imaging studies reviewed with radiology no further studies recommended. Patient can be discharged home on doxycycline for [address] of the right lower extremity showed persistent abnormal density of the tibia similar to previous study; residual changes from prior osteomyelitis versus acute osteomyelitis ESR within normal limits MRI results noted Dc Vancomycin/cefepime Blood cultures negative to date Consulted infectious disease Pain management with NSAIDs and IV morphine for breakthrough pain 2. Bipolar disorder/anxiety/ADHD Continue home Abilify Patient reports 2 mg of Xanax every 4 hours when necessary, will order 1 mg every 6 hours Restart Adderall 3. Hypokalemia Status post repletion Follow-up BMP 4. Transaminitis with history of hepatitis C. improving will monitor FEN Regular diet Electrolytes: As above PT recommends rolling walker Discharge Planning Stable for discharge Israel Rodas MD Aug 09, 2017 07:02
[2017-08-09 07:45] VITALS: BP 120/81; PULSE 66; RESP 18; TEMP 97.7; O2SAT 97
[2017-08-09] MEDS: DOCUSATE SODIUM 50 MG/SENNA 8.6 MG TAB PO SCH (08:14)
[2017-08-09] MEDS: DOXYCYCLINE HYCLATE 100 MG CAP PO SCH (08:14)
[2017-08-09] MEDS: SODIUM CHLORIDE 0.9% FLUSH 10 ML FLUSH IV FLUSH SCH (08:15)
[2017-08-09] MEDS: NICOTINE 21 MG/24 HR PATCH T-DERMAL SCH (08:15)
[2017-08-09] MEDS: FAMOTIDINE 20 MG TAB PO SCH (08:15)
[2017-08-09] MEDS: REMOVE OLD PATCH T-DERMAL SCH (08:15)
[2017-08-09] MEDS: ARIPiprazole 15 MG TAB PO SCH (08:15)
[2017-08-09] MEDS: ALPRAZolam 1 MG TAB PO PRN (08:18)
[2017-08-09] MEDS ORDERED: DEXTROAMPHETAMINE/AMPHETAMINE 30 MG TAB PO SCH (09:00)
--- NOTE | 2017-08-09 09:00 | HHI.PR ---
Addendum to Inpatient Note Additional Information MRI dw Dr Gomez - findings expected to be seen with shirley perry. No further radioliogical tests at this point were recommended to differentiate between chronic and new changes Clinically pt is not favouring chronic osteo since he does not have sinus tract ESR is not supportive of osteo as well At this point I recommend to give a short course of oral abx and clinical monitoring. Pt will need to returnif his symptioms reoccus case dw w Babita Gomez and Caty Adams MD Aug 09, 2017 09:00
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
[2017-08-10] MEDS ORDERED: PHARMACY ORDERED LAB ONE (14:45)
== END 2017-08-09 10:14 | disposition home or self-care (01) ==
LOC: NEPE 18:55 → NEDA 08-07 00:10 → NEDH 08-07 04:10 → NEPFCDU 08-07 12:27
PROVIDERS: ADMIT Internal Medicine; ATTEND Internal Medicine
DX: L03.115 Cellulitis of right lower limb (principal); M86.9 Osteomyelitis, unspecified; M72.6 Necrotizing fasciitis; E87.6 Hypokalemia; R74.0 Nonspecific elevation of levels of transaminase and lactic acid dehydrogenase [LDH]; R40.0 Somnolence; R47.81 Slurred speech; B19.20 Unspecified viral hepatitis C without hepatic coma; K75.9 Inflammatory liver disease, unspecified; F31.9 Bipolar disorder, unspecified; F41.9 Anxiety disorder, unspecified; F17.200 Nicotine dependence, unspecified, uncomplicated; Z79.899 Other long term (current) drug therapy
CPT/HCPCS: 73700; 73720; 80053; 80202; 83605; 83735; 85025; 85610; 85652; 85730; 87040; 93971; 96365; 96366; 96375; 96376; 97162; 99285; A9579; G0378; G8987; G8988; J0692; J1885; J2270; J2405; J3370; J7040; J7050

== ENCOUNTER 2017-09-11 07:01 | Emergency (ER) | payer OTHER ==
[~2017-09-11] VITALS: Ht 177.8 cm; Wt 91.0 kg
[~2017-09-11 07:01] MED LIST changes: +ABIL15TA3 PO; +ADDE30TA PO; +DOXY100C PO; +IBUP-232 PO
[2017-09-11 07:04] VITALS: BP 137/77; PULSE 83; RESP 19; TEMP 98.5; O2SAT 99
[2017-09-11] MEDS ORDERED: CELE40TA PO (10:07)
[2017-09-11] MEDS ORDERED: LORazepam 1 MG TAB PO ONE (10:15)
[2017-09-11] MEDS ORDERED: TETANUS/DIPHTHERIA TOXOID ADULT 0.5 ML VIAL IM ONE (10:15)
[2017-09-11] MEDS ORDERED: KETOROLAC TROMETHAMINE 60 MG/2 ML (IM) VIAL IM ONE (10:15)
[2017-09-11] MEDS ORDERED: SULFAMETHOXAZOLE-TRIMETHOPRIM DS 800-160 MG TAB PO ONE (10:15)
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
[2017-09-11 11:37] LABS: AUTOMATED NEUTROPHIL # 5.7 TH/MM3 (1.8-7.7); BASOPHIL % 0.3 % (0.0-2.0); EOSINOPHIL # 0.1 TH/MM3 (0-0.4); EOSINOPHIL % 1.2 % (0.0-4.0); HEMATOCRIT 37.9 % (39.0-51.0); HEMOGLOBIN 13.5 GM/DL (13.0-17.0); LYMPH % 22.7 % (9.0-44.0); LYMPHOCYTE # 1.9 TH/MM3 (1.0-4.8); MEAN CELL VOLUME 83.6 FL (80.0-100.0); MEAN CORPUSCULAR HEMOGLOBIN 29.7 PG (27.0-34.0); MEAN CORPUSCULAR HGB CONC 35.5 % (32.0-36.0); MEAN PLATELET VOLUME 9.3 FL (7.0-11.0); MONO % 6.5 % (0.0-8.0); MONOCYTE # 0.5 TH/MM3 (0-0.9); NEUT % 69.3 % (16.0-70.0); PLATELET COUNT 141 TH/MM3 (150-450); RED BLOOD COUNT 4.54 MIL/MM3 (4.50-5.90); RED CELL DISTRIBUTION WIDTH 13.8 % (11.6-17.2); WHITE BLOOD COUNT 8.2 TH/MM3 (4.0-11.0)
[2017-09-11 12:22] LABS: ALKALINE PHOSPHATASE 88 U/L (45-117); ALT (GPT) 31 U/L (12-78); BLOOD UREA NITROGEN 12 MG/DL (7-18); TOTAL BILIRUBIN ADULT 0.4 MG/DL (0.2-1.0); TOTAL PROTEIN 7.1 GM/DL (6.4-8.2)
[2017-09-11 12:33] LABS: ALBUMIN 3.3 GM/DL (3.4-5.0); AST (GOT) 37 U/L (15-37); BICARBONATE 29.2 MEQ/L (21.0-32.0); CALCIUM 8.5 MG/DL (8.5-10.1); CHLORIDE 105 MEQ/L (98-107); CREATININE 1.15 MG/DL (0.60-1.30); GLOMERULAR FILTRATION RATE 74 ML/MIN (>89); GLUCOSE,RANDOM 96 MG/DL (74-106); SODIUM (NA) 140 MEQ/L (136-145)
[2017-09-11] MEDS ORDERED: BACT800T5 PO (12:42)
[2017-09-11 13:32] VITALS: BP 108/53; PULSE 63; RESP 18; O2SAT 97
== END 2017-09-11 13:40 | disposition home or self-care (01) ==
LOC: NEPE 07:01
DX: S41.132A Puncture wound without foreign body of left upper arm, initial encounter (principal); S41.131A Puncture wound without foreign body of right upper arm, initial encounter; W46.1XXA Contact with contaminated hypodermic needle, initial encounter; Y93.89 Activity, other specified; Y92.009 Unspecified place in unspecified non-institutional (private) residence as the place of occurrence of the external cause; Z23 Encounter for immunization
CPT/HCPCS: 80053; 85025; 87040; 90471; 90714; 96372; 99283; J1885